=== PATIENT | male | born 1945 | race Caucasian/White ===

== ENCOUNTER → 2017-08-17 | Outpatient (CLI) | payer MEDICARE, OTHER ==
[~2017-08-17] MED LIST: ALBU8.5H IH; ASPI-1441 PO; ATOR10TA65 PO; ATR10 PO; AUG875 PO; AZIT-17 PO; BEN20 PO; BENA40TA52 PO; CEP500 PO; FAM20 PO; HYDR473S4 PO; IBU800 PO; LOR5/325 PO; LOR7.5/325 PO; MULT-1 PO; OMEP-218 PO; ONDA8TAB94 PO; PRED20TA6 PO; RANI-324 PO; TAM4 PO
--- NOTE | 2017-08-17 10:30 | RADIOLOGY IMAGING REPORT ---
FACILITY: [facility] - [place] PATIENT NAME: Grant Salas : 1945 MR: [id number] V: [id number] EXAM DATE: ORDERING PHYSICIAN: PATRICIA BOGGS TECHNOLOGIST: Location: [facility] - [place] Patient: Grant Salas : 1945 Visit/Account:[id number] Date of Sevice: 08/17/2017 Exam type: CHEST PA AND LAT History: Bronchitis Comparison: November 19, 2011. Findings: The lungs are free of acute effusions, infiltrates or edema. The cardiac silhouette is normal in siz e. The trachea is midline. There are mild to moderate spondylotic changes of the thoracic spine. IMPRESSION: 1. No acute cardiopulmonary process is seen Report Dictated By: Kita Landa MD at 08/17/2017 10:23 AM Report E-Signed By: Kita Landa MD at 08/17/2017 10:24 AM WSN:[email or web address]
== END ==
LOC: RAD 09:38
PROVIDERS: ATTEND Internal Medicine
DX: J40 Bronchitis, not specified as acute or chronic (principal)
CPT/HCPCS: 71046

== ENCOUNTER → 2017-10-10 | Outpatient (CLI) | payer MEDICARE, OTHER ==
[~2017-10-10] MED LIST changes: +ALBU2.5V36 INH; +ATOR20TA65 PO; +GUAI120L3 PO; +IPRA3AMP21 IH; +OMEP-137 PO
--- NOTE | 2017-10-10 15:58 | RADIOLOGY IMAGING REPORT ---
FACILITY: [facility] PATIENT NAME: Grant Salas : 1945 MR: [id number] V: [id number] EXAM DATE: ORDERING PHYSICIAN: NAYELI JACOBS TECHNOLOGIST: Location: [facility] Patient: Grant Salas : 1945 Visit/Account:[id number] Date of Sevice: 10/10/2017 CHEST PA AND LAT INDICATION: Wheezing, short of breath COMPARISON: August 17, 2017 FINDINGS: The cardiac silhouette is normal in size. No pneumothorax. Clear lungs. No pleural fluid . Findings in keeping with benign diffuse idiopathic skeletal hyperostosis noted in the thoracic spin e. IMPRESSION: No acute finding. Report Dictated By: Benoit Almonte MD at 10/10/2017 3:52 PM Report E-Signed By: Benoit Almonte MD at 10/10/2017 3:54 PM WSN:[id number]
== END ==
LOC: LAB 15:11
PROVIDERS: ATTEND Nurse Practitioner Primary Care
DX: M48.14 Ankylosing hyperostosis [Forestier], thoracic region (principal); B97.4 Respiratory syncytial virus as the cause of diseases classified elsewhere; R06.2 Wheezing
CPT/HCPCS: 71046; 87631